=== PATIENT | female | born 1955 | race Caucasian/White ===

== ENCOUNTER 2016-10-29 17:39 | Emergency (ER) | payer SELFPAY ==
[~2016-10-29] VITALS: Ht 152.4 cm; Wt 104.5 kg
[2016-10-29] MEDS ORDERED: ACETAMINOPHEN 325 MG TABLET PO ONE (20:15)
[2016-10-29 21:32] VITALS: BP 159/91
== END 2016-10-29 21:34 | disposition home or self-care (01) ==
LOC: EMS 17:50
DX: S30.0XXA Contusion of lower back and pelvis, initial encounter (principal); S50.12XA Contusion of left forearm, initial encounter; V49.40XA Driver injured in collision with unspecified motor vehicles in traffic accident, initial encounter; Y93.89 Activity, other specified; Y92.89 Other specified places as the place of occurrence of the external cause; Y99.8 Other external cause status
CPT/HCPCS: 99282